=== PATIENT | male | born 1990 | race African-American/Black ===

== ENCOUNTER 2019-03-09 22:28 | Emergency (ER) | payer OTHER ==
[~2019-03-09] VITALS: Ht 188 cm; Wt 99.8 kg
[~2019-03-09 22:28] MED LIST: NORCO 5-325 TA1 EACH PO; PENICILLIN V P500 MG PO
[2019-03-09 22:32] VITALS: BP 110/77
== END 2019-03-09 23:35 | disposition home or self-care (01) ==
LOC: ER 22:28
DX: S76.312A Strain of muscle, fascia and tendon of the posterior muscle group at thigh level, left thigh, initial encounter (principal); J45.909 Unspecified asthma, uncomplicated; F17.210 Nicotine dependence, cigarettes, uncomplicated; X50.9XXA Other and unspecified overexertion or strenuous movements or postures, initial encounter; Y93.67 Activity, basketball; Y92.89 Other specified places as the place of occurrence of the external cause; Y99.8 Other external cause status